=== PATIENT | male | born 1950 | race Caucasian/White ===

== ENCOUNTER 2025-06-30 13:28 | Outpatient (CLI) | payer OTHER | END 2025-06-30 13:29 | disposition home or self-care (01) | LOC: CSHWCC 13:28 | PROVIDERS: ATTEND Nurse Practitioner Family | DX: N30.41 Irradiation cystitis with hematuria (principal); L59.8 Other specified disorders of the skin and subcutaneous tissue related to radiation | CPT/HCPCS: 99212; G0463 ==

== ENCOUNTER 2025-07-19 09:59 | Outpatient (CLI) | payer OTHER | END 2025-07-19 10:00 | disposition home or self-care (01) | LOC: CSHRAD 09:59 | PROVIDERS: ATTEND Nurse Practitioner Family | DX: Z01.818 Encounter for other preprocedural examination (principal); N30.41 Irradiation cystitis with hematuria | CPT/HCPCS: 71046 ==

== ENCOUNTER 2025-07-20 12:30 | Outpatient (CLI) | payer OTHER | END 2025-07-20 12:31 | disposition home or self-care (01) | LOC: CSHWCC 12:30 | PROVIDERS: ATTEND Nurse Practitioner Family | DX: N30.41 Irradiation cystitis with hematuria (principal); L59.8 Other specified disorders of the skin and subcutaneous tissue related to radiation; I10 Essential (primary) hypertension | CPT/HCPCS: 99212; G0463 ==

== ENCOUNTER 2025-07-21 12:45 | Outpatient (CLI) | payer OTHER | END 2025-07-21 12:46 | disposition home or self-care (01) | LOC: CSHWCC 12:45 | PROVIDERS: ATTEND Nurse Practitioner Family | DX: N30.41 Irradiation cystitis with hematuria (principal); L59.8 Other specified disorders of the skin and subcutaneous tissue related to radiation; I10 Essential (primary) hypertension ==

== ENCOUNTER 2025-07-22 12:30 | Outpatient (CLI) | payer OTHER | END 2025-07-22 12:31 | disposition home or self-care (01) | LOC: CSHWCC 12:30 | PROVIDERS: ATTEND Nurse Practitioner Family | DX: N30.41 Irradiation cystitis with hematuria (principal); L59.8 Other specified disorders of the skin and subcutaneous tissue related to radiation; I10 Essential (primary) hypertension | CPT/HCPCS: 99212; G0463 ==

== ENCOUNTER 2025-07-25 12:30 | Outpatient (CLI) | payer OTHER | END 2025-07-25 12:31 | disposition home or self-care (01) | LOC: CSHWCC 12:30 | PROVIDERS: ATTEND Nurse Practitioner Family | DX: N30.41 Irradiation cystitis with hematuria (principal); L59.8 Other specified disorders of the skin and subcutaneous tissue related to radiation; I10 Essential (primary) hypertension | CPT/HCPCS: 99212; G0463 ==

== ENCOUNTER 2025-07-26 13:19 | Outpatient (CLI) | payer OTHER | END 2025-07-26 13:20 | disposition home or self-care (01) | LOC: CSHWCC 13:19 | PROVIDERS: ATTEND Nurse Practitioner Family | DX: N30.41 Irradiation cystitis with hematuria (principal); L59.8 Other specified disorders of the skin and subcutaneous tissue related to radiation; I10 Essential (primary) hypertension | CPT/HCPCS: G0277 ==

== ENCOUNTER 2025-07-27 12:46 | Outpatient (CLI) | payer OTHER | END 2025-07-27 12:47 | disposition home or self-care (01) | LOC: CSHWCC 12:46 | PROVIDERS: ATTEND Nurse Practitioner Family | DX: N30.41 Irradiation cystitis with hematuria (principal); L59.8 Other specified disorders of the skin and subcutaneous tissue related to radiation; I10 Essential (primary) hypertension | CPT/HCPCS: G0277 ==

== ENCOUNTER 2025-07-28 12:30 | Outpatient (CLI) | payer OTHER | END 2025-07-28 12:31 | disposition home or self-care (01) | LOC: CSHWCC 12:30 | PROVIDERS: ATTEND Nurse Practitioner Family | DX: N30.41 Irradiation cystitis with hematuria (principal); L59.8 Other specified disorders of the skin and subcutaneous tissue related to radiation; I10 Essential (primary) hypertension | CPT/HCPCS: G0277 ==

== ENCOUNTER 2025-07-29 12:38 | Outpatient (CLI) | payer OTHER | END 2025-07-29 12:39 | disposition home or self-care (01) | LOC: CSHWCC 12:38 | PROVIDERS: ATTEND Nurse Practitioner Family | DX: I10 Essential (primary) hypertension (principal); N30.41 Irradiation cystitis with hematuria; L59.8 Other specified disorders of the skin and subcutaneous tissue related to radiation | CPT/HCPCS: G0277 ==

== ENCOUNTER 2025-08-01 13:35 | Outpatient (CLI) | payer OTHER | END 2025-08-01 13:36 | disposition home or self-care (01) | LOC: CSHWCC 13:35 | PROVIDERS: ATTEND Nurse Practitioner Family | DX: N30.41 Irradiation cystitis with hematuria (principal); I10 Essential (primary) hypertension; L59.8 Other specified disorders of the skin and subcutaneous tissue related to radiation | CPT/HCPCS: G0277 ==

== ENCOUNTER 2025-08-03 12:36 | Outpatient (CLI) | payer OTHER | END 2025-08-03 12:37 | disposition home or self-care (01) | LOC: CSHWCC 12:36 | PROVIDERS: ATTEND Nurse Practitioner Family | DX: N30.41 Irradiation cystitis with hematuria (principal); L59.8 Other specified disorders of the skin and subcutaneous tissue related to radiation; I10 Essential (primary) hypertension | CPT/HCPCS: G0277 ==

== ENCOUNTER 2025-08-04 12:42 | Outpatient (CLI) | payer OTHER | END 2025-08-04 12:43 | disposition home or self-care (01) | LOC: CSHWCC 12:42 | PROVIDERS: ATTEND Nurse Practitioner Family | DX: N30.41 Irradiation cystitis with hematuria (principal); L59.8 Other specified disorders of the skin and subcutaneous tissue related to radiation; I10 Essential (primary) hypertension | CPT/HCPCS: G0277 ==

== ENCOUNTER 2025-08-05 12:30 | Outpatient (CLI) | payer OTHER | END 2025-08-05 12:31 | disposition home or self-care (01) | LOC: CSHWCC 12:30 | PROVIDERS: ATTEND Nurse Practitioner Family | DX: N30.41 Irradiation cystitis with hematuria (principal); L59.8 Other specified disorders of the skin and subcutaneous tissue related to radiation; I10 Essential (primary) hypertension | CPT/HCPCS: G0277 ==

== ENCOUNTER 2025-08-11 13:17 | Outpatient (CLI) | payer OTHER | END 2025-08-11 13:18 | disposition home or self-care (01) | LOC: CSHWCC 13:17 | PROVIDERS: ATTEND Nurse Practitioner Family | DX: I10 Essential (primary) hypertension (principal); N30.41 Irradiation cystitis with hematuria; L59.8 Other specified disorders of the skin and subcutaneous tissue related to radiation | CPT/HCPCS: G0277 ==

== ENCOUNTER 2025-08-12 12:31 | Outpatient (CLI) | payer OTHER | END 2025-08-12 12:32 | disposition home or self-care (01) | LOC: CSHWCC 12:31 | PROVIDERS: ATTEND Nurse Practitioner Family | DX: N30.41 Irradiation cystitis with hematuria (principal); L59.8 Other specified disorders of the skin and subcutaneous tissue related to radiation; I10 Essential (primary) hypertension | CPT/HCPCS: G0277 ==

== ENCOUNTER 2025-08-15 13:07 | Outpatient (CLI) | payer OTHER | END 2025-08-15 13:08 | disposition home or self-care (01) | LOC: CSHWCC 13:07 | PROVIDERS: ATTEND Nurse Practitioner Family | DX: N30.41 Irradiation cystitis with hematuria (principal); L59.8 Other specified disorders of the skin and subcutaneous tissue related to radiation; I10 Essential (primary) hypertension | CPT/HCPCS: G0277 ==

== ENCOUNTER 2025-08-16 12:38 | Outpatient (CLI) | payer OTHER | END 2025-08-16 12:39 | disposition home or self-care (01) | LOC: CSHWCC 12:38 | PROVIDERS: ATTEND Nurse Practitioner Family | DX: N30.41 Irradiation cystitis with hematuria (principal); L59.8 Other specified disorders of the skin and subcutaneous tissue related to radiation; I10 Essential (primary) hypertension | CPT/HCPCS: G0277 ==

== ENCOUNTER 2025-08-17 12:49 | Outpatient (CLI) | payer OTHER | END 2025-08-17 12:50 | disposition home or self-care (01) | LOC: CSHWCC 12:49 | PROVIDERS: ATTEND Nurse Practitioner Family | DX: N30.41 Irradiation cystitis with hematuria (principal); L59.8 Other specified disorders of the skin and subcutaneous tissue related to radiation; I10 Essential (primary) hypertension | CPT/HCPCS: G0277 ==

== ENCOUNTER 2025-08-19 12:35 | Outpatient (CLI) | payer OTHER | END 2025-08-19 12:36 | disposition home or self-care (01) | LOC: CSHWCC 12:35 | PROVIDERS: ATTEND Nurse Practitioner Family | DX: N30.41 Irradiation cystitis with hematuria (principal); I10 Essential (primary) hypertension; L59.8 Other specified disorders of the skin and subcutaneous tissue related to radiation | CPT/HCPCS: G0277 ==

== ENCOUNTER 2025-08-22 12:57 | Outpatient (CLI) | payer OTHER | END 2025-08-22 12:58 | disposition home or self-care (01) | LOC: CSHWCC 12:57 | PROVIDERS: ATTEND Nurse Practitioner Family | DX: N30.41 Irradiation cystitis with hematuria (principal); L59.8 Other specified disorders of the skin and subcutaneous tissue related to radiation; I10 Essential (primary) hypertension | CPT/HCPCS: G0277 ==

== ENCOUNTER 2025-08-30 12:50 | Outpatient (CLI) | payer OTHER | END 2025-08-30 12:51 | disposition home or self-care (01) | LOC: CSHWCC 12:50 | PROVIDERS: ATTEND Nurse Practitioner Family | DX: N30.41 Irradiation cystitis with hematuria (principal); L59.8 Other specified disorders of the skin and subcutaneous tissue related to radiation; I10 Essential (primary) hypertension | CPT/HCPCS: G0277 ==

== ENCOUNTER 2025-08-31 12:32 | Outpatient (CLI) | payer OTHER | END 2025-08-31 12:33 | disposition home or self-care (01) | LOC: CSHWCC 12:32 | PROVIDERS: ATTEND Nurse Practitioner Family | DX: N30.41 Irradiation cystitis with hematuria (principal); L59.8 Other specified disorders of the skin and subcutaneous tissue related to radiation; I10 Essential (primary) hypertension | CPT/HCPCS: G0277 ==

== ENCOUNTER 2025-09-01 13:23 | Outpatient (CLI) | payer OTHER | END 2025-09-01 13:24 | disposition home or self-care (01) | LOC: CSHWCC 13:23 | PROVIDERS: ATTEND Nurse Practitioner Family | DX: N30.41 Irradiation cystitis with hematuria (principal); L59.8 Other specified disorders of the skin and subcutaneous tissue related to radiation; I10 Essential (primary) hypertension | CPT/HCPCS: G0277 ==

== ENCOUNTER 2025-09-15 12:47 | Outpatient (CLI) | payer OTHER | END 2025-09-15 12:48 | disposition home or self-care (01) | LOC: CSHWCC 12:47 | PROVIDERS: ATTEND Nurse Practitioner Family | DX: N30.41 Irradiation cystitis with hematuria (principal); L59.8 Other specified disorders of the skin and subcutaneous tissue related to radiation; I10 Essential (primary) hypertension | CPT/HCPCS: G0277 ==

== ENCOUNTER 2025-09-19 12:39 | Outpatient (CLI) | payer OTHER | END 2025-09-19 12:40 | disposition home or self-care (01) | LOC: CSHWCC 12:39 | PROVIDERS: ATTEND Nurse Practitioner Family | DX: N30.41 Irradiation cystitis with hematuria (principal); L59.8 Other specified disorders of the skin and subcutaneous tissue related to radiation; I10 Essential (primary) hypertension | CPT/HCPCS: G0277 ==

== ENCOUNTER 2025-09-20 13:09 | Outpatient (CLI) | payer OTHER | END 2025-09-20 13:10 | disposition home or self-care (01) | LOC: CSHWCC 13:09 | PROVIDERS: ATTEND Nurse Practitioner Family | DX: N30.41 Irradiation cystitis with hematuria (principal); L59.8 Other specified disorders of the skin and subcutaneous tissue related to radiation; I10 Essential (primary) hypertension | CPT/HCPCS: G0277 ==

== ENCOUNTER 2025-09-21 08:20 | Outpatient (CLI) | payer OTHER | END 2025-09-21 08:21 | disposition home or self-care (01) | LOC: CSHWCC 08:20 | PROVIDERS: ATTEND Nurse Practitioner Family | DX: N30.41 Irradiation cystitis with hematuria (principal); L59.8 Other specified disorders of the skin and subcutaneous tissue related to radiation; I10 Essential (primary) hypertension | CPT/HCPCS: G0277 ==